=== PATIENT | male | born 1990 | race Two or more races ===

== ENCOUNTER 2018-03-20 00:19 | Emergency (ER) | payer SELFPAY ==
[~2018-03-20] VITALS: Ht 167.6 cm; Wt 77.1 kg
[2018-03-20 00:34] VITALS: BP 142/90
--- NOTE | 2018-03-20 01:20 | Emergency Room Report ---
History of Present Illness General Chief Complaint: Medical Clearance Source: Patient Present Illness HPI This patient is here for medical clearance prior to booking. He c/o pain right shoulder during arrest. No specific trauma. No cp, sob, abd pain, vomiting, head trauma, no loc. Allergies: Coded Allergies: No Known Allergies (Unverified , 03/20/18) Nursing Documentation-[facility] Past Medical History: No Stated History Review of Systems All Other Systems: limited Physical Exam Vital Signs Date Time Temp Pulse Resp B/P (MAP) Pulse Ox O2 Delivery O2 Flow Rate FiO2 03/20/18 00:32 98.4 84 16 142/90 95 Room Air General Appearance: well appearing, no apparent distress Head: normocephalic, atraumatic ENT: hearing grossly normal, normal voice Neck: full range of motion, supple Respiratory: no respiratory distress, speaking full sentences Musculoskeletal: no calf tenderness Neurologic: alert, normal gait Psychiatric: mood/affect normal Skin: no rash Medical Decision Making Diagnostic Impression: Primary Impression: Medical clearance for incarceration Last Vital Signs Date Time Temp Pulse Resp B/P (MAP) Pulse Ox O2 Delivery O2 Flow Rate FiO2 03/20/18 00:34 98.4 84 16 142/90 95 Room Air Status: improved Disposition: D/C TO LAW ENFORCEMENT IN [place] Condition: Stable Patient Instructions: Medical Screening Exam Gaston Sierra M.D. Mar 20, 2018 01:20
[2018-03-20 01:25] VITALS: BP 142/90
== END 2018-03-20 01:25 ==
LOC: EMR 01:18
DX: Z02.89 Encounter for other administrative examinations (principal); M25.511 Pain in right shoulder
CPT/HCPCS: 99283